=== PATIENT | female | born 1945 | race American Indian/Alaskan Native ===

== ENCOUNTER 2016-11-06 12:16 | Emergency (ER) | payer MEDICARE ==
--- NOTE | 2016-11-06 14:16 | Emergency Department Report ---
ED CPR HPI - General Chief Complaint: Cardiac Arrest/CPR Stated Complaint: CARDIAC ARREST Time Seen by Provider: 11/06/16 12:20 Source: family, EMS Mode of arrival: Stretcher Limitations: Other - History of Present Illness Initial Comments: 71-year-old female with multiple chronic conditions presents to the hospital cardiopulmonary arrest. EMS received call that patient was having difficulty breathing. In route to the hospital patient became apneic. Once patient placed on the monitor she was in asystole. She was intubated with ET tube 7.0 prior to arrival. Accu-Chek was in the 100 range and patient received 1 amp of bicarbonate and 2 epinephrines without any improvement in asystole rhythm. Daughter accompany patient to the hospital. MD Complaint: stopped breathing - Related Data Home Medications Medication Instructions Recorded Confirmed Last Taken Atorvastatin [Lipitor] 40 mg PO QHS 12/29/13 07/08/15 1 Day Ago Fluticasone Propionate [Flonase] 100 mcg NS QDAY 12/29/13 07/08/15 1 Day Ago Amiodarone [Cordarone 200 MG TAB] 200 mg PO BID 07/07/15 07/08/15 1 Day Ago hydrALAZINE [Apresoline TAB] 50 mg PO BID 07/07/15 07/08/15 1 Day Ago Previous Rx's Medication Instructions Recorded Last Taken Type Rivastigmine [Exelon] 9.5 mg TD QDAY #30 patch 12/31/13 1 Day Ago Rx Carvedilol [Coreg] 3.125 mg PO BID #60 tablet 07/10/15 Unknown Rx Allergies Allergy/AdvReac Type Severity Reaction Status Date / Time No Known Allergies Allergy Verified 12/29/13 21:51 ED Review of Systems ROS: Stated complaint: CARDIAC ARREST Other details as noted in HPI Comment: Unobtainable due to pts medical conditions (unresponsive) ED Past Medical Hx - Past Medical History Hx Hypertension: Yes Hx CVA: Yes (TIA) Hx Diabetes: Yes Hx Dementia: Yes Additional medical history: Family is pretty sure patient's tetanus is up-to- date. - Surgical History Additional Surgical History: prolapsed uterus 2005 - Social History Smoking Status: Never Smoker - Medications Home Medications: Home Medications Medication Instructions Recorded Confirmed Last Taken Type Atorvastatin [Lipitor] 40 mg PO QHS 12/29/13 07/08/15 1 Day Ago History Fluticasone Propionate [Flonase] 100 mcg NS QDAY 12/29/13 07/08/15 1 Day Ago History Rivastigmine [Exelon] 9.5 mg TD QDAY #30 patch 12/31/13 07/08/15 1 Day Ago Rx Amiodarone [Cordarone 200 MG TAB] 200 mg PO BID 07/07/15 07/08/15 1 Day Ago History hydrALAZINE [Apresoline TAB] 50 mg PO BID 07/07/15 07/08/15 1 Day Ago History Carvedilol [Coreg] 3.125 mg PO BID #60 tablet 07/10/15 Unknown Rx ED Physical Exam - General Limitations: Other - Other Other exam information: General: Unresponsive Head exam: Atraumatic, normocephalic Eyes exam: Pupils fixed and unreactive ENT: Orally intubated 7.0 ET tube Neck exam: Normal inspection Respiratory exam: Equal breath sounds bilaterally, no spontaneous respirations Cardiovascular: Pulseless without audible heartbeat Abdomen: Soft, nondistended Extremity: Patient has bandages to bilateral lower extremities, foot pressure pills, and a wound VAC Back: Normal Inspection Neurologic: GCS equals 3 ED Course - Reevaluation(s) Reevaluation #1: 11/06/16 14:30 Upon arrival patient was in asystole requiring active bag valve mask inhalations and chest compressions. During continued resuscitation efforts patient received an additional 4 mg of epinephrine and remained in asystole throughout resuscitation events. Daughter brought into the room to witness resuscitation efforts. I explained the lack of response to medication. Resuscitation efforts ceased at 12:24p 11/06/16 14:31 ED Medical Decision Making - Medical Decision Making Unfortunately there was no response to resuscitation efforts. Time of 12: 20 4 AM. Daughter present in the ED during cold and informed of the patient's . - Differential Diagnosis PE, MS, CVA, arrhythmia, sepsis Critical Care Time: Yes Critical care time in (mins) excluding proc time.: 20 Critical care attestation.: If time is entered above; I have spent that time in minutes in the direct care of this critically ill patient, excluding procedure time. ED Disposition Clinical Impression: Cardiopulmonary arrest Disposition: Is pt being admited?: No Condition: Critical Time of Disposition: 12:30
[2016-11-07] MEDS ORDERED: ADRENALIN ONE (10:17)
== END 2016-11-06 16:20 ==
LOC: ED 12:16
DX: I46.9 Cardiac arrest, cause unspecified (principal); I10 Essential (primary) hypertension; I63.9 Cerebral infarction, unspecified; E11.9 Type 2 diabetes mellitus without complications; F03.90 Unspecified dementia, unspecified severity, without behavioral disturbance, psychotic disturbance, mood disturbance, and anxiety
CPT/HCPCS: 92950; J0171